=== PATIENT | female | born 1965 | race Caucasian/White ===

== ENCOUNTER 2023-12-22 11:25 | Emergency (ER) | payer BC ==
[2023-12-22 11:49] VITALS: TEMP 97.8; O2SAT 95
[2023-12-22 12:20] VITALS: PULSE 70; RESP 16
--- NOTE | 2023-12-22 12:46 | ERPHSYRPT ---
- History of Present Illness Time Seen by Provider: 12/22/23 11:34 Source: patient, EMS Exam Limitations: no limitations Patient Subjective Stated Complaint: C/O injury of fingers to left hand. 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 Triage Nursing Assessment: Patient arrived by ambulance. She is alert and oriented. Left digits wrapped in kerlix. Dressing removed. Abrasion present to lateral 2nd digit (1cm X 0.6cm). Laceration present to 4th digit (3.2cm around finger and through nail bed). Physician History: 58 years old female right-handed dominant presented in the ER after she smashed her fingers between propane tank and battery while having set up for camping prior to arrival. Patient was in moderate to severe sharp pain, got fentanyl and route by EMS. Patient has an abrasion to the index and laceration to fourth digit distal phalanx. Patient denies injury anywhere else. Numbness of the fingertips Allergies/Adverse Reactions: No Known Drug Allergies Allergy (Verified 12/22/23 11:28) Home Medications: Atorvastatin Calcium [Lipitor 20MG Tablet] 20 mg PO DAILY 12/22/23 [History] Pantoprazole 20 mg [Protonix 20MG Tablet] 20 mg PO DAILY 12/22/23 [History] Sertraline HCl [Zoloft] 200 mg PO DAILY 12/22/23 [History] Hx Tetanus, Diphtheria Vaccination/Date Given: Yes Hx Influenza Vaccination/Date Given: No Hx Pneumococcal Vaccination/Date Given: No Immunizations Up to Date: Yes Travel Risk - International Travel Have you traveled outside of the country in past 3 weeks: No - Emerging Infectious Disease Are you exhibiting symptoms associated with any current EIDs: No - Review of Systems Constitutional: No Symptoms Ears, Nose, & Throat: No Symptoms Respiratory: No Symptoms Cardiac: No Symptoms Abdominal/Gastrointestinal: No Symptoms Genitourinary Symptoms: No Symptoms Musculoskeletal: Injury Skin: Skin Lesions Neurological: No Symptoms - Past Medical History Pertinent Past Medical History: Yes Cardiac History: High Cholesterol GI Medical History: GERD Psycho-Social History: Anxiety, Depression - Past Surgical History Past Surgical History: Yes Female Surgical History: Tubal Ligation - Social History Smoking Status: Never smoker Exposure to second hand smoke: No Drug Use: marijuana - Nursing Vital Signs Nursing Vital Signs: Initial Vital Signs Blood Pressure 133/89 12/22/23 11:30 O2 Sat by Pulse Oximetry 91 L 12/22/23 11:30 Pain Scale Pain Intensity 4 - Physical Exam General Appearance: no apparent distress, alert Neck Exam: normal inspection, full range of motion Cardiovascular/Respiratory Exam: normal breath sounds, regular rate/rhythm Wrist Exam: normal inspection, non-tender, no evidence of injury, normal ROM Hand Exam: laceration (3.2 cm laceration around left fourth digit distal phalanx involving the nailbed as well. Abrasion left index finger distal phalanx. Restricted movements at distal interphalangeal joints. Cap refill greater than 3 seconds in the fourth digit. Less than 3-second on the second digit.) Skin Exam: normal color SpO2 Interpretation: normal SpO2: 95 O2 Delivery: Room Air Procedures - Laceration/Wound Repair Left Finger Time of Procedure: 13:48 Wound Location: Left, hand Wound Length (cm): 3.2 Wound's Depth, Shape: into muscle, irregular, contused tissue Wound Explored: clean Irrigated: Yes Hibiclens Prep: Yes Anesthesia: 2% Lidocaine Volume Anesthetic (ccs): 5 Wound Repaired With: sutures Suture Size/Type: 4-0, ethilon Number of Sutures: 2 Layer Closure?: No Sterile Dressing Applied?: Yes Splint Applied?: Yes Type of Splint Applied: Aluminum premade splint Ordered Tests: Active Orders 24 hr Category Date Time Status HAND (MINIMUM 3 VIEWS) Stat Exams 12/22/23 11:34 Taken Medication Summary Discontinued Medications Generic Name Dose Route Start Last Admin Trade Name Chace PRN Reason Stop Dose Admin Cephalexin HCl 500 mg 12/22/23 13:08 Cephalexin Mh500 Mg Capsule PO 12/22/23 13:09 STAT ONE Diphtheria/Tetanus/Acell Pertussis 0.5 ml 12/22/23 13:08 Tdap --Diph,Pertuss(Acell),Tet Vac/Pf 0.5 Ml Vial IM 12/22/23 13:09 .ONCE ONE Lidocaine HCl Confirm 12/22/23 12:59 Lidocaine Hcl 2% 20 Ml Mdv Administered 12/22/23 13:00 Dose 1 ml .ROUTE .STSpectafy-MED ONE - Progress Progress: improved Progress Note: 12/22/23 13:49 58 years old right-handed dominant is evaluated in the ER for left finger crush injuries after she smashed between propane tank and battery prior to arrival. Patient has fentanyl prior to arrival and feeling better. She has abrasion of the index finger and open fracture fourth digit involving the nail. Volar aspect is spared. Patient tetanus is updated. Given Keflex. I have obtained x-rays which are showing comminuted fracture tuft. I have shared wound picture and x-ray findings with Dr. Killian orthopedics, recommended placing 2 stitches 1 on each side, wet dressing and outpatient follow-up with orthopedics here at [facility] tomorrow morning at 8 AM. I have shared the results of workup and plan with patient who understand and agrees with follow-up. Signs symptoms of worsening needing return to ER which she seems understanding. Counseled pt/family regarding: diagnosis, need for follow-up, rad results Medical Desision Making - Discussion of managment Care discussed with:: specialist (Orthopedic surgery Dr. Killian) Reviewed:: Test results Agreed on:: Treatment plan, need for follow-up Will see patient: In office - Diagnostic Testing Diagnostic test were ordered, analyzed, and reviewed by me: Yes Radiological Interpretation: Interpreted by me, Reviewed by me - Risk of complications The pt has a mod risk of morbidity or mortality based on: Need for prescription drug management - Departure Departure Disposition: Home Clinical Impression: Fracture, finger, distal phalanx, open Condition: Stable Critical Care Time: No Referrals: DOCTOR,NO FAMILY [Primary Care Provider] - Follow up/PCP as directed MIKO KILLIAN MD [ACTIVE STAFF] - Follow up/PCP as directed (Tomorrow morning at 8 AM.) Instructions: Finger Fracture (DC) Additional Instructions: Intermittent ice application. Keep it elevated. Take pain medications as ne eded. Follow-up with orthopedics for reevaluation in the morning. Return to ER for intractable pain, bluish discoloration of the tip, fever chills, discharge etc. Prescriptions: Hydrocodone/Acetaminophen [Hydrocodone-Acetamin 5-325 mg] 1 tab PO Q6HPRN PRN 3 Days #12 tablet MDD 4 PRN Reason: Pain Cephalexin Mh 500 mg [Keflex 500 mg] 500 mg PO TID #21 cap
[2023-12-22] MEDS ORDERED: XYLOCAINE 2% HCL 20 ML MDV ONE (12:59)
[2023-12-22] MEDS ORDERED: Adacel Vial IM ONE (14:26)
[2023-12-22] MEDS ORDERED: KEFLEX 500 MG ONE (14:26)
[2023-12-22] MEDS: KEFLEX 500 MG PO ONE (14:30)
[2023-12-22] MEDS: Adacel Vial IM ONE (14:32)
[2023-12-22 14:33] VITALS: BP 115/74
--- NOTE | 2023-12-22 19:55 | XRAY ---
Indication: Pain following injury. Comparison: None 3 view left hand demonstrates minimally displaced comminuted 4th tuft fracture with soft tissue swelling. Chronic findings including osteopenia, minimal degenerative changes all IP joints, and advanced 1st metacarpal multangular degenerative changes.
== END 2023-12-22 14:47 | disposition home or self-care (01) ==
LOC: ED 11:25
DX: S62.635B Displaced fracture of distal phalanx of left ring finger, initial encounter for open fracture (principal); S61.315A Laceration without foreign body of left ring finger with damage to nail, initial encounter; S60.411A Abrasion of left index finger, initial encounter; W23.0XXA Caught, crushed, jammed, or pinched between moving objects, initial encounter; Y92.833 Campsite as the place of occurrence of the external cause; E78.5 Hyperlipidemia, unspecified; Z79.891 Long term (current) use of opiate analgesic; Z79.899 Other long term (current) drug therapy; Z23 Encounter for immunization
CPT/HCPCS: 12002; 73130; 90471; 90715; 99283; A9270-GY